=== PATIENT | male | born 1965 | race Caucasian/White ===

== ENCOUNTER 2019-01-24 11:21 | Observation (INO) ==
[2019-01-24 11:26] VITALS: BMI 33.5
[2019-01-24 11:50] LABS: BASOPHILS # (AUTO) 0.1 X10^3/uL (0.0-0.1); BASOPHILS % (AUTO) 0.7 % (0.2-1.0); EOSINOPHILS # (AUTO) 0.1 x10^3/uL (0.0-0.2); EOSINOPHILS % (AUTO) 1.3 % (0.9-2.9); HEMATOCRIT 46.6 % (42.0-54.0); LYMPHOCYTES # (AUTO) 2.3 X10^3/uL (1.3-2.9); LYMPHOCYTES % (AUTO) 28.6 % (21.0-51.0); MEAN CORPUSCULAR HEMOGLOBIN 30.3 pg (27.0-34.0); MEAN CORPUSCULAR HGB CONC 34.3 g/dL (33.0-35.0); MEAN CORPUSCULAR VOLUME 88.2 fL (80.0-100.0); MEAN PLATELET VOLUME 8.1 fL (7.4-11.0); MONOCYTES # (AUTO) 0.6 x10^3/uL (0.3-0.8); MONOCYTES % (AUTO) 7.2 % (0.0-13.0); NEUTROPHILS % (AUTO) 62.2 % (42.0-75.0); PLATELET COUNT 232 X10^3/uL (150.0-450.0); RED BLOOD COUNT 5.28 X10^6/uL (4.7-6.0); RED CELL DISTRIBUTION WIDTH 13.8 % (11.6-16.5)
--- NOTE | 2019-01-24 11:53 | RAD ---
History: Chest pain and shortness of breath Study: AP chest Comparison: None Findings: The lungs are clear and the heart and mediastinum are unremarkable. There is no edema or effusion. No significant bony abnormality is demonstrated. Impression: No evidence for acute cardiopulmonary disease Reported By:
--- NOTE | 2019-01-24 11:54 | DR.CP ---
HPI Time Seen Time Seen by Provider: 01/24/19 11:40 PCP Primary Care Physician: VAUGHN HPI Comment HPI Comment: PATIENT IS 53YR OLD FEMALE HERE IN THE EMERGENCY ROOM COMPLAINING OF ACHING CHEST PAIN TIMES 2 WEEKS. PAIN GOT WORSE ONE HOUR AGO. 8/10 ACKING PAIN RADIATING TO LEFT ARM AND LEFT NECK. PAIN IS GETTING WORSE. NO FEVER. NO COUGH. Complaint Chief Complaint Doctor Comments: CHEST PAIN TIMES 2 WEEKS. Chief Complaint:: PT C/O HAVING CP FOR 2 WEEKS, PT STATES " THOUGHT IS WAS A COLD " PT STATES BOUT AN HOUR AGO HE STARTED HURTING IN HIS LEFT , NECK , LEFT ARM AND UPPER CHEST PAIN , AND PT STATES PAIN IS ACHING..BR Self Treatment fo Chief Complaint: PT DENIES SOB, NO DENIES ANY STRESS, Reviewed Nurses Notes Review: Yes Source History Provided: Patient Mode of Arrival Mode of Arrival: Ambulatory Timing Onset of Chief Complaint: 01/10/19 Came on: Suddenly Pain: Present Now Duration Duration: Intermittent Duration: Days Location Chest Pain Radiation Location: Left Arm and Neck Context Onset: At rest Cardiac Risk Factors: None PE Risk Factors: None History of: None Prehospital Care: None Quality Quality: Aching Severity Severity: Moderate Modifying Factors Worsens: Movement Impoves: Rest Associated Signs and Symptoms Associated Signs and Symptoms: None PMH PMH Past Medical History: No Past Surgical History: No Family History History of Family Medical Conditions: Yes Family Medical History Comment: HEART Social History Type of Tobacco Use: Smokeless Does any household member use tobacco: No Alcohol Use: None Do you use any recreational Drugs:: No Lives With: Family Lives Where: Home infectious screening In the last 2 months have you had wt loss of >10#?: NO Have you had fever, night sweats or hemotysis?: No Have you traveled outside the country in the last 6 months?: No Isolation: Standard ROS Review of Systems Constitutional: See HPI, Weakness and Fatigue; negative Fever Eyes: No Symptoms Reported and See HPI ENTM: No Symptoms Reported and See HPI; negative Ear Pain, Nose Discharge, Nose Congestion and Throat Pain Respiratoy: No Symptoms Reported and See HPI; negative Moist Cough, Short of Breath and Wheezing Cardiovascular: See HPI and Chest Pain; negative Edema and Palpitations Gastrointestinal/Abdominal: No Symptoms Reported and See HPI; negative Abdominal Pain, Constipation, Diarrhea and Nausea Genitourinary: No Symptoms Reported and See HPI; negative Dysuria, Frequency and Hematuria Neurological: See HPI and Weakness; negative Headache and Dizziness Musculoskeletal: No Symptoms Reported and See HPI; negative Muscle Pain Integumentary: No Symptoms Reported and See HPI; negative Change in Color, Rash and Juandice Hematologic/Lymphatic: No Symptoms Reported and See HPI; negative Easy Bruising and Swollen Glands Endocrine: No Symptoms Reported and See HPI; negative Increased Thirst and Increased Urine Psychiatric: No Symptoms Reported and See HPI All Other Systems: Reviewed and Negative PE Vitals Vitals: Temperature 97.0 F Pulse Rate 93 Respiratory Rate 18 Blood Pressure 136/74 O2 Sat by Pulse Oximetry 98 General Limitations: No Limitations General Appearance: Alert and In No Apparent Distress Head Head Exam: Normal Inspection and Atraumatic Eyes Eye exam: Normal Appearance and PERRL; negative Scleral Icterus and Conjunctival Injection ENT ENT Exam: Normal Exam, Normal Oropharynx, Normal External Ear Exam and TM's Normal Bilaterally Chest Chest Inspection: Normal Inspection and Symmetric Chest Wall Rise; negative Tenderness Respiratory Respiratory Exam: Normal Lung Sounds Bilat; negative Accessory Muscle Use, Chest Wall Tenderness and Respiratory Distress Respiratory Exam: Bilateral: Clear to Auscultation Cardiovascular Cardiovascular Exam: Regular Rate and Normal Rhythm; negative Normal Heart Sounds, Systolic Murmur and Diastolic Murmur Pulse: Normal Edema: Normal Abdominal Exam Abdominal Exam: Normal Inspection, Normal Bowel Sounds and Soft; negative Tenderness Extremities Extremities Exam: Normal Inspection and Normal Capillary Refill; negative Tenderness, Edema and Calf Tenderness Back Back Exam: Normal Inspection; negative Tenderness, (R) CVA Tenderness, (L) CVA Tenderness, Paraspinal Tenderness and Vertebral Tenderness Neurologic Neurological Exam: Alert, Oriented X3 and CN II-XII Intact; negative Motor Sensory Deficit Psychiatric Psychiatric Exam: Normal Affect and Normal Mood Skin Skin Exam: Warm, Dry, Intact and Normal Color COURSE Treatment Treatment: SEE ORDERS. ASA 324MG PO. Consultation Consultation Comments: DR. ROBLEDO WILL ADMIT PATIENT. Education/Counseling Education/Counseling: Family Educated On: Diagnosis ROR Labs Reviewed Laboratory Results Reviewed?: Yes Result Diagrams: 01/25/19 05:58 01/25/19 05:58 Laboratory: WBC 8.0 X10^3/uL (3.6-10.0) 01/24/19 11:40 RBC 5.28 X10^6/uL (4.7-6.0) 01/24/19 11:40 Hgb 16.0 g/dL (13.5-18.0) 01/24/19 11:40 Hct 46.6 % (42.0-54.0) 01/24/19 11:40 MCV 88.2 fL (80.0-100.0) 01/24/19 11:40 MCH 30.3 pg (27.0-34.0) 01/24/19 11:40 MCHC 34.3 g/dL (33.0-35.0) 01/24/19 11:40 RDW 13.8 % (11.6-16.5) 01/24/19 11:40 Plt Count 232 X10^3/uL (150.0-450.0) 01/24/19 11:40 MPV 8.1 fL (7.4-11.0) 01/24/19 11:40 Neut % (Auto) 62.2 % (42.0-75.0) 01/24/19 11:40 Lymph % (Auto) 28.6 % (21.0-51.0) 01/24/19 11:40 [place] % (Auto) 7.2 % (0.0-13.0) 01/24/19 11:40 Eos % (Auto) 1.3 % (0.9-2.9) 01/24/19 11:40 Baso % (Auto) 0.7 % (0.2-1.0) 01/24/19 11:40 Neut # (Auto) 5.0 x10^3/uL (2.2-4.8) H 01/24/19 11:40 Lymph # (Auto) 2.3 X10^3/uL (1.3-2.9) 01/24/19 11:40 [place] # (Auto) 0.6 x10^3/uL (0.3-0.8) 01/24/19 11:40 Eos # (Auto) 0.1 x10^3/uL (0.0-0.2) 01/24/19 11:40 Baso # (Auto) 0.1 X10^3/uL (0.0-0.1) 01/24/19 11:40 Absolute Nucleated RBC 0.0 /100WBC 01/24/19 11:40 D-Dimer 148 ng/mL (0-400) 01/24/19 11:40 Sodium 141 mmol/L (136-145) 01/24/19 11:40 Corrected Sodium 143 mmol/L (136-145) 01/24/19 11:40 Potassium 4.2 mmol/L (3.5-5.1) 01/24/19 11:40 Chloride 104 mmol/L (98-107) 01/24/19 11:40 Carbon Dioxide 29.6 mmol/L (21-32) 01/24/19 11:40 BUN 16 mg/dL (7-18) 01/24/19 11:40 Creatinine 1.18 mg/dL (0.70-1.30) 01/24/19 11:40 Est GFR (MDRD) Af Amer > 60 (>60) 01/24/19 11:40 Est GFR (MDRD) Non-Af > 60 (>60) 01/24/19 11:40 Glucose 165 mg/dL (65-99) H 01/24/19 11:40 Hemoglobin A1c 5.7 % 01/24/19 11:40 Calcium 9.2 mg/dL (8.5-10.1) 01/24/19 11:40 Corrected Calcium TNP 01/24/19 11:40 Total Bilirubin 0.40 mg/dL (0.2-1.0) 01/24/19 11:40 AST 17 Units/L (15-37) 01/24/19 11:40 ALT 41 Units/L (12-78) 01/24/19 11:40 Alkaline Phosphatase 75 Units/L (46-116) 01/24/19 11:40 Creatine Kinase 96 Units/L (39-308) 01/24/19 11:40 CK-MB (CK-2) < 1.0 ng/mL (0-4.0) 01/24/19 11:40 CK/CKMB % Calc 1.0 % (<4) 01/24/19 11:40 Troponin I < 0.02 ng/mL (0-1.5) 01/24/19 11:40 B-Natriuretic Peptide < 5.0 pg/mL (0-79) 01/24/19 11:40 Total Protein 7.1 g/dL (6.4-8.2) 01/24/19 11:40 Albumin 4.1 g/dL (3.4-5.0) 01/24/19 11:40 Globulin 3.0 g/dL (2.5-4.5) 01/24/19 11:40 Albumin/Globulin Ratio 1.4 Ratio (1.1-2.1) 01/24/19 11:40 Triglycerides 166 mg/dL (0-150) H 01/24/19 11:40 Cholesterol 220 mg/dL (0-200) H 01/24/19 11:40 LDL Cholesterol, Calc 150 mg/dL (0-100) H 01/24/19 11:40 HDL Cholesterol 37 mg/dL (40-60) L 01/24/19 11:40 Cholesterol/HDL Ratio 5.9 (0.0-5.0) H 01/24/19 11:40 XRAY XRAY Interpreted by: Radiologist XRAY Findings: REPORT NOTED AND DISCUSSED WITH PATIENT. EKG Rate: 99 Ava: LAD Rhythm: NSR Block: None Hypertrophy: None ST: Nonsp Opioid Opioid Risk Tool Age (Bruno box if 16-45): No History of Preadolescent Sexual Abuse: No Total: 0 Total Score Risk Category: Low Risk Copyright: [facility] predicting aberrant behaviors Diagnosis Discharge Problem: Chest pain Qualifiers: Chest pain type: precordial pain Qualified Code(s): R07.2 - Precordial pain Instructions Instructions: Cholesterol, [id number] Coping with Quitting Smoking Smoking Tobacco Information, Adult Nonspecific Chest Pain, [id number] Steps to Quit Smoking, [id number] Health Risks of Smoking High Triglycerides Eating Plan Secondhand Smoke High Cholesterol Forms: Excuse From Work Patient Portal
[2019-01-24] MEDS ORDERED: ASPIRIN 81 MG CHEWTAB PO ONE (12:03)
[2019-01-24 12:05] LABS: BLOOD UREA NITROGEN 16 mg/dL (7-18); CALCIUM 9.2 mg/dL (8.5-10.1); CARBON DIOXIDE 29.6 mmol/L (21-32); CHLORIDE 104 mmol/L (98-107); COR NA(FOR HYPERGLY) 143 mmol/L (136-145); CREATININE 1.18 mg/dL (0.70-1.30); SODIUM 141 mmol/L (136-145); TROPONIN I < 0.02 ng/mL (0-1.5); eGFR NON BLACK RACES > 60 (>60)
[2019-01-24] MEDS ORDERED: ASPIRIN 81 MG CHEWTAB ONE (12:07)
[2019-01-24 12:09] LABS: ALANINE AMINOTRANSFERASE 41 Units/L (12-78); ALBUMIN 4.1 g/dL (3.4-5.0); ALKALINE PHOSPHATASE 75 Units/L (46-116); ASPARTATE AMINO TRANSFERASE 17 Units/L (15-37); CREATINE KINASE 96 Units/L (39-308); CREATINE KINASE MB < 1.0 ng/mL (0-4.0); TOTAL PROTEIN 7.1 g/dL (6.4-8.2)
[2019-01-24 12:20] LABS: CHOL/HDL RATIO 5.9 (0.0-5.0); CHOLESTEROL 220 mg/dL (0-200); HDL CHOLESTEROL 37 mg/dL (40-60); TRIGLYCERIDES 166 mg/dL (0-150)
--- NOTE | 2019-01-24 13:45 | CT ---
History: Paresthesia Study: CT head without contrast. Sagittal and coronal reformations were provided. Comparison: None Findings: The ventricles and sulci are normal in size and configuration. There is no intracranial hemorrhage or mass or subdural collection of fluid. The calvarium is intact. The partially visualized paranasal sinuses are clear. The mastoid sinuses are clear. Although there is beam hardening artifact there is a suggestion of low attenuation in the juany measuring approximately 1.8 cm diameter. Impression: Apparent low-attenuation lesion centrally in the juany that could represent edema or infarct or mass. Suggest MRI for further evaluation. Reported By:
--- NOTE | 2019-01-24 15:38 | MRI ---
MRI BRAIN WITHOUT CONTRAST CLINICAL HISTORY: 53-year-old male with questionable lesion within the juany on brain CT. COMPARISON: CT head this date. TECHNIQUE: Multiplanar, multisequence MR images of the brain were obtained without contrast. FINDINGS: There is no evidence of diffusion restriction. The craniocervical junction is normal. Pituitary and optic nerve complex are normal. Few scattered small confluent and punctate T2 FLAIR signal hyperintensities are present within the subcortical, juxtacortical, periventricular and supraventricular white matter that are nonspecific in appearance but most likely to represent microvascular white matter ischemic changes. Small focus of clustered punctate subtle spherical/tubular regions of susceptibility with surrounding T2 hyperintensity within the right cerebral peduncle measures 8 mm in greatest dimension, noted in axial plane in the AP direction series 701, image 11. Chronic lacunar infarctions bilateral thalami. Normal signal characteristics and morphology are demonstrated within the cerebral cortex, corpus callosum, deep del angel nuclei and cerebellum. The major vascular flow voids, to include the dural venous sinuses, are intact. No other region of abnormal susceptibility on gradient imaging. Age advanced cortical volume loss is present, with commensurate sulcal and ventricular prominence. The basilar cisterns are normal. The orbits and globes are within normal limits. Arrested pneumatization frontal sinuses. Remaining paranasal sinuses, mastoid air cells and tympanic cavities clear. IMPRESSION: 1. No acute ischemic or hemorrhagic insult. 2. Region of concern within the juany is most likely volume averaging and artifactual on CT with no corresponding lesion noted on MR brain. 3. Lesion within the right cerebral peduncle as described above most consistent with cavernous malformation. Further evaluation with contrast can be performed as an outpatient. 4. Mild, chronic microvascular white matter ischemic disease with associated volume loss. Reported By:
[2019-01-24] MEDS ORDERED: MORPHINE SULFATE INJ 2 MG INJ IVP PRN (17:44)
[2019-01-24 18:04] LABS: BILIRUBIN,URINE NEGATIVE (NEGATIVE); BLOOD/HEMOGLOBIN,URINE NEGATIVE (NEGATIVE); GLUCOSE, URINE NEGATIVE (NEGATIVE); KETONES,URINE NEGATIVE (NEGATIVE); LEUKOCYTE ESTERASE ,URINE NEGATIVE (NEGATIVE); NITRITES,URINE NEGATIVE (NEGATIVE); PROTEIN,URINE NEGATIVE (NEGATIVE); UROBILINOGEN,URINE NORMAL (NORMAL)
[2019-01-24 18:08] LABS: APPEARANCE,URINE CLEAR (CLEAR); COLOR,URINE YELLOW (YELLOW)
--- NOTE | 2019-01-24 19:05 | DR.H&P ---
H&P - History & Physical for Day of: H&P Date: 01/24/19 - Chief Complaint Chief Complaint: CHEST PAIN, LEFT SIDE ARM AND NECK PAIN AND TINGLING - History of Present Illness History of Present Illness: IS A 53 YEAR OLD WHITE MALE WHO PRESENTED TO THE ER WITH COMPLAINTS OF CHEST PAIN FOR THE PAST TWO WEEKS. PATIENT REPORTS THAT PAIN RADIATES TO THE LEFT SIDE NECK, ARM, AND UPPER CHEST. PAIN IS DESCRIBED ACHING. HE ALSO REPORTS TINGLING TO THE LEFT SIDE OF HIS FACE. HE DENIES ANY SIGNIFICANT MEDICAL HISTORY. ON ARRIVAL, VITALS WERE 97.4-34-56-103-169/91. LABS WERE OBTAINED. ABNORMAL LAB VALUES INCLUDE THE FOLLOWING: GLUCOSE 165, TRIGLYCERIDES 166, CHOLESTEROL 220, LDL 150, HDL 37. EKG REVEALED SINUS RHYTHM WITH HR 99. CHEST XRAY REVEALED: NO EVIDENCE FOR ACUTE CARDIOPULMONARY DISEASE. A BRAIN CT WAS OBTAINED AND REVEALED: Apparent low- attenuation lesion centrally in the juany that could represent edema or infarct or mass. Suggest MRI for further evaluation. A BRAIN MRI WAS OBTAINED AND REVEALED: No acute ischemic or hemorrhagic insult. Region of concern within the juany is most likely volume averaging and artifactual on CT with no corresponding lesion noted on MR brain. Lesion within the right cerebral peduncle as described above most consistent with cavernous malformation. Further evaluation with contrast can be performed as an outpatient. Mild, chronic microvascular white matter ischemic disease with associated volume loss. HE WAS GIVEN A TOTAL OF 324 MG ASPIRIN IN THE ER. HE WAS ADMITTED FOR FURHTER EVALUATION AND TREATMENT OF CHEST PAIN RULE OUT AMI AND PARASTHESIA. HE WAS STARTED ON NORMAL SALINE AT [facility] AND MORPHINE SULFATE 1-2MG IV Q4H PRN. WE PLAN TO OBTAIN SERIAL CARDIAC ENZYMES AND EKGS. OTHERWISE, WE WILL FOLLOW UP WITH AM LABS AND CONTINUE TO MONITOR. - Past Surgical History Surgical History: Unknown - Family History Family Medical History: [place], Coronary Artery Disease, Hypertension - Social History Does patient currently use any type of tobacco product: Yes Have you used tobacco products in the last 12 months: Yes Type of Tobacco Use: Smokeless How many years tobacco product used: 30 Does any household member use tobacco: Yes () Alcohol Use: Occasionally Drug Use: None Prescription drug monitoring program results: PDMP was not reviewed - Medications Home Medications: No Known Drug Allergies Allergy (Verified 01/24/19 11:26) CONTINUE taking the following medications NK 01/24/19 [History] - Review of Systems Constitutional: No Symptoms Reported Eyes: No Symptoms Reported ENT: No Symptoms Reported Respiratory: No Symptoms Reported Cardiovascular: Chest Pain Gastrointestinal: No Symptoms Reported Genitourinary: No Symptoms Reported Musculoskeletal: Arm Pain, Neck Pain Skin: No Symptoms Reported Neurological: Other (TINGLING TO THE LEFT SIDE OF FACE ) - Physical Exam Vital Signs: Temperature 98.0 F Pulse Rate [Right Brachial] 93 Pulse Rate 93 Respiratory Rate 20 Blood Pressure [Left Arm] 134/66 Blood Pressure 134/66 O2 Sat by Pulse Oximetry 94 Oriented: Normal Eyes: Normal Ear: Normal Nose: Normal Throat: Normal Respiratory: Clear Throughout Cardiovascular: Normal : Normal Auscultation: Bowel Sounds: Normal Palpation: Normal Tenderness: Normal Skin: Normal Musculoskeletal: Normal Psychiatric: Normal Mood Description: Calm Affect: Normal Speech Pattern: Clear - Assessment/Plan (1) Chest pain, rule out acute myocardial infarction Status: Acute Plan: SERIAL CARDIAC ENZYMES AND EKGS, SUPPLEMENTAL OXYGEN, MORPHINE PRN, CONTINUE TO MONITOR (2) Facial paresthesia Status: Acute - Allergies Allergies/Adverse Reactions: Allergies Allergy/AdvReac Type Severity Reaction Status Date / Time No Known Drug Allergies Allergy Verified 01/24/19 11:26
[2019-01-24 19:34] LABS: CREATINE KINASE 97 Units/L (39-308); CREATINE KINASE MB < 1.0 ng/mL (0-4.0); TROPONIN I < 0.02 ng/mL (0-1.5)
[2019-01-25 01:35] LABS: CKMB % 1.1 % (<4); CREATINE KINASE 92 Units/L (39-308); CREATINE KINASE MB < 1.0 ng/mL (0-4.0); TROPONIN I < 0.02 ng/mL (0-1.5)
[2019-01-25] MEDS: NS 1000 ML 1,000 ML IV SCH ×3 (04:30→07:58)
[2019-01-25 06:57] LABS: BASOPHILS # (AUTO) 0.1 X10^3/uL (0.0-0.1); BASOPHILS % (AUTO) 1.1 % (0.2-1.0); EOSINOPHILS # (AUTO) 0.1 x10^3/uL (0.0-0.2); EOSINOPHILS % (AUTO) 1.6 % (0.9-2.9); HEMATOCRIT 45.5 % (42.0-54.0); HEMOGLOBIN 15.4 g/dL (13.5-18.0); LYMPHOCYTES # (AUTO) 2.4 X10^3/uL (1.3-2.9); LYMPHOCYTES % (AUTO) 29.2 % (21.0-51.0); MEAN CORPUSCULAR HEMOGLOBIN 30.3 pg (27.0-34.0); MEAN CORPUSCULAR VOLUME 89.2 fL (80.0-100.0); MEAN PLATELET VOLUME 8.3 fL (7.4-11.0); MONOCYTES # (AUTO) 0.8 x10^3/uL (0.3-0.8); MONOCYTES % (AUTO) 9.3 % (0.0-13.0); NEUTROPHILS # (AUTO) 4.7 x10^3/uL (2.2-4.8); NEUTROPHILS % (AUTO) 58.8 % (42.0-75.0); PLATELET COUNT 219 X10^3/uL (150.0-450.0); RED CELL DISTRIBUTION WIDTH 13.4 % (11.6-16.5); WHITE BLOOD COUNT 8.1 X10^3/uL (3.6-10.0)
[2019-01-25 07:20] LABS: ALANINE AMINOTRANSFERASE 41 Units/L (12-78); ALBUMIN 3.6 g/dL (3.4-5.0); ALKALINE PHOSPHATASE 60 Units/L (46-116); ASPARTATE AMINO TRANSFERASE 18 Units/L (15-37); BLOOD UREA NITROGEN 14 mg/dL (7-18); CALCIUM 8.9 mg/dL (8.5-10.1); CARBON DIOXIDE 28.8 mmol/L (21-32); CHLORIDE 106 mmol/L (98-107); CHOL/HDL RATIO 6.5 (0.0-5.0); CHOLESTEROL 216 mg/dL (0-200); CREATININE 1.17 mg/dL (0.70-1.30); HDL CHOLESTEROL 33 mg/dL (40-60); SODIUM 143 mmol/L (136-145); TOTAL PROTEIN 6.5 g/dL (6.4-8.2); TRIGLYCERIDES 167 mg/dL (0-150); eGFR NON BLACK RACES > 60 (>60)
[2019-01-25] MEDS ORDERED: ASPIRIN EC 81 MG PO SCH (09:00)
[2019-01-25 10:36] VITALS: BP 134/87
[2019-01-25] MEDS ORDERED: LOVENOX INJ 40 MG SYR SC SCH (12:00)
--- NOTE | 2019-01-25 13:43 | VAS ---
History: Paresthesia Study: Carotid duplex ultrasound Findings: Images show no significant plaque formation or stenosis. There is antegrade flow in the vertebral arteries, left dominant Peak systolic velocity in the right internal carotid artery is 57.83 centimeters/second compared to 78.21 in the distal right common carotid artery for a ratio of 0.74. Peak systolic velocity in the left internal carotid artery is 62.1 centimeters/second compared to 64.08 in the distal left common carotid artery for a ratio of 0.97. Impression: No evidence for carotid stenosis or plaque formation Reported By:
== END 2019-01-25 16:00 | disposition home or self-care (01) ==
LOC: MED/SURG 11:21 → ER 11:21 → MED/SURG 16:36
PROVIDERS: ADMIT Internal Medicine; ATTEND Internal Medicine
DX: M79.602 Pain in left arm; M54.2 Cervicalgia; R07.89 Other chest pain; R90.82 White matter disease, unspecified; R73.09 Other abnormal glucose; R20.2 Paresthesia of skin; R94.31 Abnormal electrocardiogram [ECG] [EKG]
CPT/HCPCS: 36415; 70450; 70551; 71010; 71045; 80053; 80061; 81003; 82550; 82553; 83036; 83880; 84484; 85025; 85378; 93005; 93306; 93880; 94760; 96365; 96367; 96374; 99284; A4222; G0378; J7030